=== PATIENT | male | born 2000 | race Caucasian/White ===

== ENCOUNTER 2022-11-06 14:14 | Emergency (ER) | payer MEDICARE, MEDICAID, SELFPAY ==
--- NOTE | 2022-11-06 14:35 | ED.GENADULT ---
HPI - General Adult General Chief complaint: Anxiety Stated complaint: Blood Pressure Issues Time Seen by Provider: 11/06/22 15:13 Source: patient and RN notes reviewed Mode of arrival: ambulatory Limitations: no limitations History of Present Illness HPI narrative: This is a 22-year-old male presenting to the emergency department with complaints of increased anxiety. Patient reports that this morning he felt as though he could not sit still and had some difficulty breathing. He states that this lasted for about 2 hours. He states that he has stressors at home involving his child's mother but does not go more in depth with any of these details. Patient reports that he was given a prescription for lorazepam for anxiety attacks in the past but reports that he ran out of this medication. He presented with the bottle that was written for him however he states that the pills that her inside of it he received from another individual as they were ?gifted to him?, patient is unsure what drug is in this bottle. Patient states that he does not have a good support system at home or anyone to talk to. He denies history of any mental health issues. He denies suicidal or homicidal ideations. Denies visual or auditory hallucinations. Denies alcohol, or illicit drug use. No other complaints or concerns at this time. MD complaint: Anxiety Quality: aching Pain Consistency: constant Relieving factors: none Exacerbating factors: none Associated symptoms: denies other symptoms Treatments prior to arrival: none Related Data Previous Rx's Medication Instructions Recorded clonidine HCl 0.1 mg tablet 0.1 mg PO DAILY PRN anxiety #10 11/06/22 tabs Allergies Allergy/AdvReac Type Severity Reaction Status Date / Time bee pollen [bee stings] Allergy Swelling Verified 11/06/22 14:35 Review of Systems Review of Systems: Constitutional: No Weight loss, No Fever, No Chills, No Night Sweats, No Fatigue, No Malaise ENT/Mouth: No Hearing loss, No Ear Pain, No Nasal Congestion, No Sinus Pain, No Hoarseness, No sore throat, No Rhinorrhea, No Swallowing Difficulty Eyes: No Eye Pain, No Swelling, No Redness, No Foreign Body, No Discharge, No Vision Changes Cardiovascular: No Chest Pain, No SOB, No Dyspnea on Exertion, No Orthopnea, No Edema, No Palpitations Respiratory: No Cough, No Sputum, No Wheezing, No Smoke Exposure, No Dyspnea Gastrointestinal: No Nausea, No Vomiting, No Diarrhea, No Constipation, No Abdominal pain, No Hematochezia, No Melena Genitourinary: No irregular bleeding, No Dysuria, No Urinary Frequency, No Hematuria, No Urinary Incontinence/retention, No Urgency, No Flank Pain, No Urinary Flow Changes, No Hesitancy Musculoskeletal: No joint pain, No Myalgias, No Joint Swelling Skin: No Skin Lesions, No rash Neuro: No Weakness, No Numbness, No Paresthesias, No Loss of Consciousness, No Dizziness, No Headache Psych: No Anxiety/Panic, No Depression, No SI/HI/AH/VH, No Social Issues, Heme/Lymph: No Bruising, No Bleeding,No Lymphadenopathy Endocrine: No Polyuria, No Polydipsia, No Temperature Intolerance [facility] Past Medical History Medical History (Updated 11/06/22 @ 16:40 by CARLOS Russell) Anxiety Social History Social History Alcohol intake: never Smoked in Last 30 Days: No Use of substances other than those prescribed or required for medical reasons: No Advance Directives: No Advance Directives Information Provided: Yes Physical Exam ED Vital Signs: Vital Signs - 24 hr 11/06/22 14:36 11/06/22 16:00 Temperature 98.5 F 96.9 F Pulse Rate 88 69 Respiratory Rate 18 16 Blood Pressure 118/69 109/54 L Pulse Oximetry 96 97 Oxygen Delivery Method Room Air Room Air BMI result Body Mass Index 30.9 Const Other: General: Awake, alert, and oriented X3. No acute distress. HEENT: Normal inspection CVS: Normal heart rate and rhythm. Pulses normal. Respiratory: No respiratory distress Skin: Warm, dry, no rashes noted to exposed skin. Normal skin color. Normal skin turgor. Extremities: Neuro: Oriented X 3. No motor deficit. No sensory deficit. Course Course Course Narrative: RME: 22yo m w/no sig PMHx c/o increased anxiety s/p receiving a text and checked his BP and was elevated 144/77. admits to feeling improved at present Patient was seen our ED diagnosed with intermittent explosive disorder requesting to be tx for anxiety. Has bottle of Ativan w/him per [facility] filled 4 day supply on 10/09 of Ativan Full HPI, ROS and PE to be performed by primary ED provider. Reevaluation(s) Reevaluation #1: Patient seen by care team and was given resources for outpatient therapy. Patient does not want to be prescribed benzos at this time given that this medication can be addictive and causes other side effects. Will try clonidine. Patient advised to follow-up with primary care physician regarding his symptoms as this can be better managed through them. Patient understands and agrees with plan. Patient stable for discharge. Medical Decision Making Medical Decision Making MDM Narrative: 22-year-old male presenting to the emergency department with complaints of increased anxiety since this morning. Patient admits to having stressors at home involving his child's mother. On arrival, patient's vital signs within normal limits. For during examination, patient reporting that he is feeling much better than he was previously feeling. He is requesting a medication that would help treat his panic attacks. He states that he only has panic attacks every once in a while, reports maybe once a month. He has never talked to his primary care physician regarding this. Patient has no suicidal or homicidal ideation. No auditory or visual hallucinations. I discussed at length that benzodiazepines are not good long-term and can be very addictive. Patient states that he no longer wants to be prescribed this for acute panic attacks. Patient willing to see therapy. Care team consult placed. Plan: Utox ordered. Differential Diagnosis Differential Diagnoses: The differential diagnosis associated with the presentation includes Anxiety, depression, suicidal ideations, homicidal ideation, panic attack Lab Data Labs: Lab Results 11/06/22 Range/Units 15:37 Urine Opiates Screen Not Detected (Not Detect) Urine Fentanyl Screen Not Detected (Not Detect) Ur Barbiturates Screen Not Detected (Not Detect) Ur Phencyclidine Scrn Not Detected (Not Detect) Ur Amphetamines Screen Not Detected (Not Detect) U Benzodiazepines Scrn Not Detected (Not Detect) Urine Cocaine Screen Not Detected (Not Detect) U Marijuana (THC) Screen Not Detected (Not Detect) Discharge Plan Discharge Clinical Impression: Acute anxiety Patient Disposition: Home, Self-Care Instructions: Anxiety (ED) Additional Instructions: Your symptoms are consistent with anxiety. This is very common and most people have anxiety. Use prescribed medication as needed. Follow-up with the resources provided to you by our care team today. Do not take medication that is not prescribed to you. If any new or worsening symptoms occur including shortness of breath, chest pain, or any other worsening symptoms please return for re-evaluation. Follow-up with your primary care physician as they can monitor this more closely. Prescriptions: New clonidine HCl 0.1 mg tablet 0.1 mg PO DAILY PRN (Reason: anxiety) Qty: 10 0RF Interventions: ED Discharge Assessment Last Done: 11/06/22 16:53 Discharge Date/Time: 11/06/22 16:54
[2022-11-06 14:36] VITALS: BP 118/69; PULSE 88; RESP 18; TEMP 36.9; O2SAT 96; BMI 30.9
[2022-11-06 15:59] LABS: Amphetamine Screen Urine Not Detected (Not Detect); Barbiturates, Urine Not Detected (Not Detect); Benzodiazepines Screen Urine Not Detected (Not Detect); Cannabinoid Screen Urine Not Detected (Not Detect); Cocaine Screen Urine Not Detected (Not Detect); Fentanyl, urine Not Detected (Not Detect); Opiate Screen Urine Not Detected (Not Detect); Phencyclidine Screen Urine Not Detected (Not Detect)
[2022-11-06 16:00] VITALS: BP 109/54; PULSE 69; RESP 16; TEMP 36.1; O2SAT 97
--- NOTE | 2022-11-06 16:12 | PC.NURSE ---
urine screening sent to lab.
--- NOTE | 2022-11-06 16:36 | PC.NURSE ---
care team called and will come over with resources for patient, provider aware
--- NOTE | 2022-11-06 16:43 | MHC.CARE ---
T/w spoke with patient regarding access to outpatient services, and specific outpatient programs in the [place] area. Specifically [facility] who has the [facility] and can do same day appointments, as well as [facility] [place], who also do same day appointments. Discussed anxiety symptoms, normalized symptoms, how common they are as well as how established various treatments for anxiety are in terms of their efficacy. He agrees to call [facility] and [facility] in the morning, and has the CARE team number for further questions and any further referral support. He denies SI/ HI, states I am not crazy! This chief writer confirms he indeed is not, normalizes sx again and encourages him to call resources.
== END 2022-11-06 16:54 | disposition home or self-care (01) ==
PROVIDERS: Physician Assistant; Emergency Provider Emergency Medicine
DX: F41.9 Anxiety disorder, unspecified (principal); Z79.899 Other long term (current) drug therapy
CPT/HCPCS: 80307; 99284